=== PATIENT | male | born 1950 | race Caucasian/White ===

== ENCOUNTER 2016-11-22 08:47 | Day surgery (SDC) | payer BC ==
--- NOTE | ~2016-11-22 | EGD ---
EGD REPORT [facility] [address] [address] NAME: KINGSTON [place] : [birth year] STATUS : [facility]#: [id number] AGE: 66 ADM/REG DATE : 11/22/16 MR#: [id number] REPORT SERV DATE: 11/22/16 DICTATED BY: ANGELIA ARREDONDO DATE: 11/22/16 REPORT STATUS : Draft TRANSCRIBED BY: [facility] DATE: 11/22/16 Endoscopy Center Patient Name: Kingston Oh. Date of : 1950 Attending MD: ANGELIA ARREDONDO MD Procedure Date No Time: 11/22/2016 Procedure: Upper GI endoscopy Indications: Follow-up of Greenwood's esophagus Referring MD: SIIAH JOHNSON Medicines: as per anesthesia Complications: No immediate complications. Procedure: Pre-Anesthesia Assessment: - ASA Grade Assessment: II - A patient with mild systemic disease. After obtaining informed consent, the endoscope was passed under direct vision. Throughout the procedure, the patient's blood pressure, pulse, and oxygen saturations were monitored continuously. The GIF [id number] was introduced through the mouth, and advanced to the third part of duodenum. The upper GI endoscopy was accomplished without difficulty. The patient tolerated the procedure. Findings: There were esophageal mucosal changes secondary to established short-segment Greenwood's disease present in the lower third of the esophagus. The maximum longitudinal extent of these mucosal changes was 1 cm in length. Mucosa was biopsied with a cold forceps for histology randomly at intervals of 1 cm in the lower third of the esophagus. One specimen bottle was sent to pathology. A medium-sized hiatus hernia was present. The examined duodenum was normal. Impression: - Esophageal mucosal changes secondary to established short-segment Greenwood's disease. Biopsied. - Hiatus hernia. - Normal examined duodenum. Recommendation: - Await pathology results. - Follow an antireflux regimen. - Continue present medications. Procedure Code(s): --- Professional --- 51001, Esophagogastroduodenoscopy, flexible, transoral; with biopsy, single or multiple EGD REPORT [address] [place]. [address] NAME: KINGSTON [place] : [birth year] STATUS : [facility]#: [id number] AGE: 66 ADM/REG DATE : 11/22/16 MR#: [id number] REPORT SERV DATE: 11/22/16 DICTATED BY: ANGELIA ARREDONDO. DATE: 11/22/16 REPORT STATUS : Draft TRANSCRIBED BY: [employer] DATE: 11/22/16 Diagnosis Code(s): --- Professional --- K22.70, Greenwood's esophagus without dysplasia K44.9, Diaphragmatic hernia without obstruction or gangrene CPT copyright 2013 [employer]. All rights reserved. The codes documented in this report are preliminary and upon freelance displayer review may be revised to meet current compliance requirements. ANGELIA ARREDONDO MD 11/22/2016 12:23 PM This report has been signed electronically. Number of Addenda: 0 Note Initiated On: 11/22/2016 11:03 AM Scope Withdrawal Time 0 hours 0 minutes 0 seconds [address] [facility] [place] [address]
[~2016-11-22 08:47] MED LIST: LOTE10 PO; PRAV10 PO; PRILOSEC40 MG PO; XALAT OPH
== END 2016-11-22 23:59 | disposition home or self-care (01) ==
LOC: DMU 08:47
PROVIDERS: Internal Medicine Gastroenterology
PROC: 0DB38ZX Excision of Lower Esophagus, Via Natural or Artificial Opening Endoscopic, Diagnostic (ICD-10-PCS; principal; 2016-11-22 10:30)
DX: K22.70 Barrett's esophagus without dysplasia (principal); K44.9 Diaphragmatic hernia without obstruction or gangrene; H40.9 Unspecified glaucoma; I10 Essential (primary) hypertension; E78.5 Hyperlipidemia, unspecified; E78.00 Pure hypercholesterolemia, unspecified; H26.9 Unspecified cataract; K21.9 Gastro-esophageal reflux disease without esophagitis; Z85.46 Personal history of malignant neoplasm of prostate; Z98.890 Other specified postprocedural states; Z90.89 Acquired absence of other organs; Z79.899 Other long term (current) drug therapy
CPT/HCPCS: 88305